=== PATIENT | female | born 1965 | race Caucasian/White ===

== ENCOUNTER 2023-12-27 08:11 | Observation (INO) ==
[~2023-12-27 08:11] MED LIST: Naloxone 0.4 mg VIAL 0.4 mg/ml 1 ml VIAL IV PRN; Ondansetron 4 mg VIAL 2 MG/ML 2 ml VIAL IV PRN; fentaNYL 100 mcg/2 ml 50 MCG/ML VIAL IV PRN
[2023-12-27] MEDS ORDERED: Tranexamic Acid 1 GM/100ML BAG 2,000 MG/200 ML BAG IV ONE (08:22)
[2023-12-27] MEDS ORDERED: ceFAZolin 2 GM PREMIX 2 GM/50 ML BAG ONE (08:22)
[2023-12-27] MEDS: Lactated Ringers 1000 ml BAG 1,000 ML IV SCH ×2 (08:53→16:27)
[2023-12-27] MEDS: Buffered Lidocaine 1% SYRIN 1 ml INTRADERM ONE (08:53)
[2023-12-27 09:01] LABS: Rapid COVID-19 Molecular Undetected (Undetected)
[2023-12-27] MEDS ORDERED: ROPIVACAINE 5 MG/ML 30 ML BTL (0.5%) ONE (10:09)
[2023-12-27] MEDS ORDERED: fentaNYL 100 mcg/2 ml 50 MCG/ML VIAL ONE (10:20)
[2023-12-27] MEDS ORDERED: Midazolam 2 mg/2 ml VIAL 1 mg/ml 2 ml VIAL (2 mg) ONE (10:20)
[2023-12-27] MEDS ORDERED: Glycopyrrolate IV 0.2 MG/ML 1 ML VIAL ONE ×2 (11:35→12:58)
[2023-12-27] MEDS ORDERED: Calcium Carb (TUMS) 500 mg CHEW TAB PO PRN (13:42)
[2023-12-27] MEDS ORDERED: Ondansetron ODT 4 mg TAB 4 MG TAB PO PRN (13:42)
[2023-12-27] MEDS ORDERED: Lactulose 30 ml UDC PO PRN (13:42)
[2023-12-27] MEDS ORDERED: Magnesium Hydroxide LIQ 30 ML UDC PO PRN (13:42)
[2023-12-27] MEDS ORDERED: Ondansetron 4 mg VIAL 2 MG/ML 2 ml VIAL IV PRN (13:42)
[2023-12-27] MEDS ORDERED: Morphine 2 MG/ML SYRINGE IV PRN (13:42)
[2023-12-27] MEDS: ceFAZolin 2 GM PREMIX 2 GM/50 ML BAG IV SCH (19:41)
[2023-12-27] MEDS: Magnesium Hydroxide LIQ 30 ML UDC PO SCH (21:59)
[2023-12-28 06:28] LABS: Hematocrit 31.4 % (35-45); Hemoglobin 10.4 g/dL (11.5-14.3); Mean Platelet Volume 8.9 fL (7.5-11.2); Platelet Count 342 10^3/uL (150-450)
[2023-12-28 06:42] LABS: Creatinine, Serum 0.62 mg/dL (0.51-0.95); Potassium 3.7 mmol/L (3.5-5.0); eGFR CKD-EPI 101.9 (>60)
[2023-12-28] MEDS: Vitamin THERAPEUTIC TAB PO SCH (08:12)
== END 2023-12-28 14:10 | disposition home or self-care (01) ==
LOC: OR 08:11 → SSU 08:11
PROVIDERS: ADMIT Orthopaedic Surgery Adult Reconstructive Orthopaedic Surgery; ATTEND Orthopaedic Surgery Adult Reconstructive Orthopaedic Surgery